=== PATIENT | male | born 1975 | race Caucasian/White ===

== ENCOUNTER 2020-02-27 21:09 | Emergency (ER) | payer SELFPAY ==
[~2020-02-27] VITALS: Ht 172.7 cm; Wt 68.0 kg
[2020-02-27] MEDS ORDERED: LIDOCAINE HCL 2% 100 MG/5 ML IV ONE (21:21)
[2020-02-27] MEDS ORDERED: LIDOCAINE HCL 1% LOCAL INJ 20 ML VIAL ONE (21:26)
[2020-02-27] MEDS ORDERED: LIDOCAINE HCL 2% JELLY 5 ML TUBE ONE (21:26)
--- NOTE | 2020-02-27 21:27 | Emergency Department Note ---
History of Present Illnes History of Present Illness Chief Complaint: Extremity Trauma/Pain History of Present Illness This is a 44 year old male Chief Complaint Comment pt presents with a fish hook stuck to his right forearm, incident happened yesterday, pulses strong and present to right upper extremity, full ROM, last tetanus shot was less than 2 yrs ago. Historian: Patient Arrival Mode: Car Banana Room Cutter Required: No Onset (how long ago): day(s) (1) Location: R forearm Quality: Hook in flesh Radiation: Reports non-radiation Severity: mild Onset quality: sudden Duration (how long): day(s) (1) Timing of current episode: constant Progression: unchanged Chronicity: new Context: Denies recent illness, Denies recent surgery Relieving factors: none Exacerbating factors: none Associated symptoms: Reports denies other symptoms Treatments prior to arrival: none Past Medical/Family History Physician Review I have reviewed the patient's past medical and family history. Any updates have been documented here. Past Medical History Recent Fever: No (0) Clinical Suspicion of Infectio: No New/Unexplained Change in Ment: No Past Medical History: None Other Surgery: wisdom teeth removed Review of Systems Review of Systems Constitutional: Reports no symptoms EENTM: Reports no symptoms Cardiovascular: Reports no symptoms Respiratory: Reports no symptoms Gastrointestinal: Reports no symptoms Genitourinary: Reports no symptoms Musculoskeletal: Reports as per HPI Integumentary: Reports no symptoms Neurological: Reports no symptoms Psychological: Reports no symptoms Endocrine: Reports no symptoms Hematological/Lymphatic: Reports no symptoms Physical Exam Related Data Allergies: Coded Allergies: No Known Allergies (Unverified , 02/27/20) Triage Vital Signs Vital Signs Date Time Temp Pulse Resp B/P (MAP) Pulse Ox O2 Delivery O2 Flow Rate FiO2 02/27/20 21:14 98.3 86 20 118/78 100 Room Air Vital signs reviewed: Yes Physical Exam CONSTITUTIONAL Constitutional: Present well-developed, Present well-nourished HENT HENT: Present normocephalic, Present atraumatic, Present oropharynx clear/moist, Present nose normal HENT L/R: Present left ext ear normal, Present right ext ear normal EYES Eyes: Reports PERRL, Reports conjunctivae normal NECK Neck: Present ROM normal PULMONARY Pulmonary: Present effort normal, Present breath sounds normal CARDIOVASCULAR Cardiovascular: Present regular rhythm, Present heart sounds normal, Present capillary refill normal, Present normal rate GASTROINTESTINAL Abdominal: Present soft, Present nontender, Present bowel sounds normal GENITOURINARY Genitourinary: Present exam deferred SKIN Skin: Present warm, Present dry MUSCULOSKELETAL Musculoskeletal: Present ROM normal, Present other (Fish hook imbedden in R vlar forearm) NEUROLOGICAL Neurological: Present alert, Present oriented x 3, Present no gross motor or sensory deficits PSYCHOLOGICAL Psychological: Present mood/affect normal, Present judgement normal Results Imaging Imaging results reviewed: Yes Procedures Foreign Body Time out performed: Yes Site: right, upper extremity Description: fish hook Sedation/analgesia: none Technique: manual removal Confirmed by: direct visualization Complications: none Post procedure exame: awake, alert Neurovascular: normal distal pulse Assessment & Plan Medical Decision Making MDM 44-year-old female presents for embedded fish hook into his right volar forearm. This happened yesterday. The fishhook was removed as noted in the procedure note and will prescribe Keflex for infection prophylaxis as this has been in place for over 24 hours. Examination of the hand after the procedure shows intact neurovascular status patient is appropriate for discharge. Reassessment Reassessment time: 22:16 Reassessment Well appearing, NAD Assessment & Plan Final Impression: (1) Fish hook in forearm Depart Disposition: HOME, SELF-CARE Last Vital Signs Date Time Temp Pulse Resp B/P (MAP) Pulse Ox O2 Delivery O2 Flow Rate FiO2 02/27/20 21:14 98.3 86 20 118/78 100 Room Air Medications in the ED Lidocaine HCl 2,000 mg STK-MED ONCE IV ; Start 02/27/20 at 21:21; Stop 02/27/20 at 21:14; Status DC CAN WILSON MD Feb 27, 2020 21:27
[2020-02-27] MEDS ORDERED: FENTANYL CITRATE/PF 100MCG/2 ML INJ IV ONE (21:30)
[2020-02-27] MEDS ORDERED: LIDOCAINE HCL 2% JELLY 5 ML TUBE TOP ONE (21:30)
[2020-02-27] MEDS ORDERED: LIDOCAINE HCL 1% LOCAL INJ 20 ML VIAL INJ ONE (21:30)
--- NOTE | 2020-02-27 21:55 | Diagnostic Imaging Report ---
X-ray 2 views of the forearm. HISTORY: Forearm pain. COMPARISON: None available. FINDINGS: Bones/joints: No acute fracture or dislocation. Soft tissues: There is a hooked radiodense structure partially embedded in the distal volar forearm. IMPRESSION: Hooked radiodense object, likely metallic, partially embedded in the distal volar forearm. No associated osseous abnormality. Signed by: Cesar Mckinney MD on 02/27/2020 9:51 PM
[2020-02-27 22:08] VITALS: BP 132/85
[2020-02-27] MEDS ORDERED: BACITRACIN ZINC 0.9GM TP ONE ×2 (22:09→22:15)
== END 2020-02-27 22:33 | disposition home or self-care (01) ==
LOC: ER 21:39
DX: S51.841A Puncture wound with foreign body of right forearm, initial encounter (principal); W26.8XXA Contact with other sharp object(s), not elsewhere classified, initial encounter; Y93.19 Activity, other involving water and watercraft; Y92.828 Other wilderness area as the place of occurrence of the external cause
CPT/HCPCS: 73090; 99283; J2001 ×3; J3010